=== PATIENT | male | born 1955 | race African-American/Black ===

== ENCOUNTER 2024-07-08 13:43 | Observation (INO) ==
--- NOTE | 2024-07-08 14:15 | EKG ---
Test Reason : chest pain Blood Pressure : */* mmHG Vent. Rate : 57 BPM Atrial Rate : 57 BPM P-R Int : 172 ms QRS Dur : 90 ms QT Int : 444 ms P-R-T Axes : 64 58 65 degrees QTc Int : 432 ms Sinus bradycardia Minimal voltage criteria for LVH, may be normal variant ( Sokolow-Kwan ) Septal infarct , age undetermined Abnormal ECG When compared with ECG of 31-JAN-2024 16:30, Nonspecific T wave abnormality no longer evident in Inferior leads Nonspecific T wave abnormality no longer evident in Lateral leads Confirmed by Juan Carlos Winchester MD ([id number]) on 07/08/2024 7:51:12 PM Referred By: Confirmed By: Juan Carlos Winchester MD
[2024-07-08 14:26] LABS: HEMOGLOBIN 12.8 g/dL (13.5-18.0); MEAN CORPUSCULAR HEMOGLOBIN 25.5 pg (27.0-34.0); WHITE BLOOD COUNT 8.2 X10^3/uL (3.6-10.0)
[2024-07-08 14:29] LABS: BASOPHILS # (AUTO) 0.1 X10^3/uL (0.0-0.1); BASOPHILS % (AUTO) 0.8 % (0.2-1.0); EOSINOPHILS % (AUTO) 0.1 % (0.9-2.9); HEMATOCRIT 38.8 % (42.0-54.0); LYMPHOCYTES # (AUTO) 1.7 X10^3/uL (1.3-2.9); LYMPHOCYTES % (AUTO) 21.4 % (21.0-51.0); MEAN CORPUSCULAR HGB CONC 32.9 g/dL (33.0-35.0); MEAN CORPUSCULAR VOLUME 77.4 fL (80.0-100.0); MEAN PLATELET VOLUME 8.1 fL (7.4-11.0); MONOCYTES # (AUTO) 0.6 x10^3/uL (0.3-0.8); MONOCYTES % (AUTO) 6.9 % (0.0-13.0); NEUTROPHILS # (AUTO) 5.8 x10^3/uL (2.2-4.8); NEUTROPHILS % (AUTO) 70.8 % (42.0-75.0); PLATELET COUNT 183 X10^3/uL (150.0-450.0); RED BLOOD COUNT 5.02 X10^6/uL (4.7-6.0); RED CELL DISTRIBUTION WIDTH 14.1 % (11.6-16.5)
[2024-07-08 14:37] LABS: ALANINE AMINOTRANSFERASE 27 Units/L (12-78); ALKALINE PHOSPHATASE 92 Units/L (46-116); ASPARTATE AMINO TRANSFERASE 25 Units/L (15-37); BLOOD UREA NITROGEN 12 mg/dL (7-18); CALCIUM 9.2 mg/dL (8.5-10.1); CARBON DIOXIDE 27.3 mmol/L (21-32); CHLORIDE 107 mmol/L (98-107); CREATINE KINASE 96 Units/L (39-308); CREATININE 1.08 mg/dL (0.70-1.30); GLUCOSE 96 mg/dL (65-99); POTASSIUM 4.1 mmol/L (3.5-5.1); SODIUM 145 mmol/L (136-145); TOTAL PROTEIN 7.9 g/dL (6.4-8.2); eGFR NON BLACK RACES > 60 (>60)
[2024-07-08 14:50] LABS: INR 1.03 (0.8-1.3)
[2024-07-08] MEDS: ZOFRAN INJ 4 MG VIAL IVP ONE (15:18)
[2024-07-08] MEDS: MORPHINE SULFATE INJ 4 MG IVP ONE (15:21)
--- NOTE | 2024-07-08 16:30 | CT ---
EXAM: CTA CHEST WITH CONTRAST HISTORY: elevated d-dimer, chest pain; COMPARISON: None. TECHNIQUE: Axial images were acquired of the chest with IV contrast for a CT angiogram. Coronal and sagittal ewa ges were provided. All images were reviewed in a variety of windows and levels. 3D 8 mm thick MIPS im ages were provided. RADIATION REDUCTION TECHNIQUE: Automated exposure control, Adjustment of the mA and/or kV according t o patient size, or iterative reconstruction techniques were used. 8 mm thick axial MIPS images were p rovided. FINDINGS: THYROID GLAND: The thyroid gland is unremarkable. HEART AND VESSELS: The heart size is within normal limits. There is no evidence of a pericardial effu romeo. The thoracic aorta is normal in size without evidence of aneurysm or dissection. The main pulmo nary artery size is within normal limits. There are no filling defects seen in the visualized pulmona ry arteries to suggest a pulmonary embolism. LYMPHNODES: There is no evidence of axillary, mediastinal, or hilar lymphadenopathy, calcified hilar nodes indicative of old granulomatous disease. AIRWAY: The trachea and mainstem bronchi are patent. No intraluminal lesions are seen. LUNGS: The lungs are clear bilaterally. There is no evidence of consolidation, pleural effusion, or p neumothorax. ESOPHAGUS: The esophagus is grossly unremarkable. BONES: The visualized bones demonstrate degenerative changes. There are no concerning lytic or blasti c lesions identified. UPPER ABDOMINAL STRUCTURES: The visualized portions of the upper abdominal structures are unremarkabl e. IMPRESSION: Negative CT pulmonary angiogram; no evidence of pulmonary embolic disease. No active cardiopulmonary disease THIS IS AN ELECTRONICALLY VERIFIED FINAL REPORT 07/08/2024 4:26 PM - Electronically signed by Chas Hussein MD
[2024-07-08] MEDS: DILAUDID INJ IM ONE (18:54)
[2024-07-08] MEDS: NORFLEX INJ IVP ONE (19:05)
[2024-07-08] MEDS: DILAUDID INJ IVP ONE (19:05)
[2024-07-08] MEDS: LYRICA CAP 150 mg PO SCH (20:28)
[2024-07-08] MEDS: ELAVIL PO SCH (20:28)
--- NOTE | 2024-07-08 20:35 | DR.CP ---
HPI Time Seen Time Seen by Provider: 07/08/24 15:02 PCP Primary Care Physician: Julian HPI Comment HPI Comment: 69 yo male with compalints of left side chest pain, left abdominal pain radiates to left lower extremity. Pt states he had suden onset of left chest pain around 11am today. Pt describes CP as "dull, like a big piece of meat is stuck there". Pt also states that his left abdomen is hurting "like I have a big piece of meat stuck there". Pt denies n/v/d, contstipation of note, patient seen at [facility], diagnosed with back pain, abdominal pain and thigh pain. workup unremarkable. treated with morphine and discharged home. Complaint Chief Complaint:: Pt states he had suden onset of left chest pain around 11am today. Pt describes CP as "dull, like a big piece of meat is stuck there". Pt also states that his left abdomen is hurting "like I have a big piece of meat stuck there". Pt denies n/v/d, contstipation Self Treatment fo Chief Complaint: Pt has not take any ASA or NTG at home. COVID-19 Coronavirus risk:travel/contact w/high risk person: No Has patient experienced Coronavirus symptoms: No Source History Provided: Patient and Significant Other Mode of Arrival Mode of Arrival: Ambulatory Timing Onset of Chief Complaint: 07/08/24 Location Chest Pain Radiation Location: Neck and Abdomen Associated Signs and Symptoms Associated Signs and Symptoms: None PMH PMH Past Medical History: Yes Past Medical History: COPD, Dyslipidemia, Migraines, GERD, Hypertension and Seizures Past Medical History Comment: chronic pain, hepatitis C, pancreatitis Past Surgical History: No Family History History of Family Medical Conditions: Yes Family Medical History: Hypertension Social History Does patient currently use any type of tobacco product: Yes Have you used tobacco products in the last 12 months: Yes Type of Tobacco Use: Cigarettes Does any household member use tobacco: Yes Alcohol Use: Occasionally Do you use any recreational Drugs:: Yes (marijuana) Lives With: Spouse Lives Where: Home Travel Risk Coronavirus risk:travel/contact w/high risk person: No Has patient experienced Coronavirus symptoms: No Infectious screening In the last 2 months have you had wt loss of >10#?: NO Have you had fever, night sweats or hemotysis?: No Have you traveled outside the country in the last 6 months?: No Isolation: Standard ROS Review of Systems Eyes: No Symptoms Reported ENTM: No Symptoms Reported Respiratoy: No Symptoms Reported Cardiovascular: Chest Pain Genitourinary: No Symptoms Reported Neurological: No Symptoms Reported Musculoskeletal: Left and Leg Integumentary: No Symptoms Reported Hematologic/Lymphatic: No Symptoms Reported Endocrine: No Symptoms Reported Psychiatric: No Symptoms Reported All Other Systems: Reviewed and Negative PE Vitals Vitals: Vital Signs Temperature 98.7 F Pulse Rate 61 Pulse Rate 57 Pulse Rate 58 Pulse Rate 57 Pulse Rate 60 Pulse Rate 59 Pulse Rate 61 Pulse Rate 61 Pulse Rate 59 Pulse Rate 63 Pulse Rate 59 Pulse Rate 58 Pulse Rate 59 Pulse Rate 63 Pulse Rate 63 Pulse Rate 59 Pulse Rate 58 Pulse Rate 64 Pulse Rate 58 Pulse Rate 65 Respiratory Rate 17 Respiratory Rate 35 Respiratory Rate 35 Respiratory Rate 31 Respiratory Rate 35 Respiratory Rate 25 Respiratory Rate 25 Respiratory Rate 22 Respiratory Rate 16 Respiratory Rate 18 Respiratory Rate 21 Respiratory Rate 18 Respiratory Rate 23 Respiratory Rate 13 Respiratory Rate 14 Respiratory Rate 17 Respiratory Rate 22 Respiratory Rate 18 Respiratory Rate 10 Respiratory Rate 15 Respiratory Rate 32 Respiratory Rate 26 Respiratory Rate 23 Blood Pressure 171/82 Blood Pressure 178/82 Blood Pressure 173/81 Blood Pressure 170/83 Blood Pressure 170/83 Blood Pressure 170/83 Blood Pressure 170/83 Blood Pressure 171/74 Blood Pressure 189/82 Blood Pressure 169/77 O2 Sat by Pulse Oximetry 100 O2 Sat by Pulse Oximetry 100 O2 Sat by Pulse Oximetry 100 O2 Sat by Pulse Oximetry 98 O2 Sat by Pulse Oximetry 100 O2 Sat by Pulse Oximetry 99 O2 Sat by Pulse Oximetry 99 O2 Sat by Pulse Oximetry 99 O2 Sat by Pulse Oximetry 98 O2 Sat by Pulse Oximetry 99 O2 Sat by Pulse Oximetry 99 O2 Sat by Pulse Oximetry 100 O2 Sat by Pulse Oximetry 99 O2 Sat by Pulse Oximetry 98 O2 Sat by Pulse Oximetry 100 O2 Sat by Pulse Oximetry 99 O2 Sat by Pulse Oximetry 100 O2 Sat by Pulse Oximetry 98 O2 Sat by Pulse Oximetry 99 O2 Sat by Pulse Oximetry 98 General General Appearance: In Distress Head Head Exam: Normal Inspection, Atraumatic and Normocephalic Eyes Eye exam: Normal Appearance and EOMI ENT ENT Exam: Mucous Membranes Moist Chest Chest Inspection: Normal Inspection Respiratory Respiratory Exam: Normal Lung Sounds Bilat Cardiovascular Cardiovascular Exam: Regular Rate and Normal Rhythm Abdominal Exam Abdominal Exam: Normal Inspection, Normal Bowel Sounds and Soft Extremities Extremities Exam: Normal Inspection MDM Differential Diagnosis Differential Diagnosis: Angina, Aortic Dissection, Chest Wall Pain, Cholelithasis, Costochondritis, Esophageal Reflux/Spasm, Gastritis, Myocardial Infarction, Pericarditis, Pancreatitis, Pneumonia and Pulmonary Embolus COURSE Treatment Treatment: This is a 69-year-old male that presents with left-sided chest pain, abdominal pain and left thigh pain. Differential diagnosis ACS, pulmonary embolism, aortic dissection, pneumonia, musculoskeletal pain, chronic pain syndrome EKG: NO STEMI Serial cardiac enzymes negative Elevated D-dimer. CTA of chest-no pulmonary embolus. No findings of a thoracic aortic dissection. Heart score 3, low risk Initially, patient given morphine 4 mg for pain which helped for a bit then followed up with Dilaudid 0.5 mg along with norflex 60mg iv Patient pain intractable. Given the fact the patient was seen in the ER on yesterday and reports back to the ER and continues to complain of chest pain, called on-call doctor Dr. Ortiz to admit for observational chest pain rule out. He agreed. [facility] Labs Reviewed 07/08/24 14:11 07/08/24 14:11 Laboratory: WBC 8.2 X10^3/uL (3.6-10.0) 07/08/24 14:11 RBC 5.02 X10^6/uL (4.7-6.0) 07/08/24 14:11 Hgb 12.8 g/dL (13.5-18.0) L 07/08/24 14:11 Hct 38.8 % (42.0-54.0) L 07/08/24 14:11 MCV 77.4 fL (80.0-100.0) L 07/08/24 14:11 MCH 25.5 pg (27.0-34.0) L 07/08/24 14:11 MCHC 32.9 g/dL (33.0-35.0) L 07/08/24 14:11 RDW 14.1 % (11.6-16.5) 07/08/24 14:11 Plt Count 183 X10^3/uL (150.0-450.0) 07/08/24 14:11 MPV 8.1 fL (7.4-11.0) 07/08/24 14:11 Neut % (Auto) 70.8 % (42.0-75.0) 07/08/24 14:11 Lymph % (Auto) 21.4 % (21.0-51.0) 07/08/24 14:11 [place] % (Auto) 6.9 % (0.0-13.0) 07/08/24 14:11 Eos % (Auto) 0.1 % (0.9-2.9) L 07/08/24 14:11 Baso % (Auto) 0.8 % (0.2-1.0) 07/08/24 14:11 Neut # (Auto) 5.8 x10^3/uL (2.2-4.8) H 07/08/24 14:11 Lymph # (Auto) 1.7 X10^3/uL (1.3-2.9) 07/08/24 14:11 [place] # (Auto) 0.6 x10^3/uL (0.3-0.8) 07/08/24 14:11 Eos # (Auto) 0.0 x10^3/uL (0.0-0.2) 07/08/24 14:11 Baso # (Auto) 0.1 X10^3/uL (0.0-0.1) 07/08/24 14:11 Absolute Nucleated RBC 0.0 /100WBC 07/08/24 14:11 PT 13.3 SECONDS (11.8-14.3) 07/08/24 14:30 INR Target Range - 07/08/24 14:30 INR 1.03 (0.8-1.3) 07/08/24 14:30 APTT 26.0 SECONDS (22.9-36.5) 07/08/24 14:30 PTT Comment - 07/08/24 14:30 D-Dimer 1.80 ug/ml (0.0-0.57) H 07/08/24 14:30 Sodium 145 mmol/L (136-145) 07/08/24 14:11 Corrected Sodium TNP 07/08/24 14:11 Potassium 4.1 mmol/L (3.5-5.1) 07/08/24 14:11 Chloride 107 mmol/L (98-107) 07/08/24 14:11 Carbon Dioxide 27.3 mmol/L (21-32) 07/08/24 14:11 BUN 12 mg/dL (7-18) 07/08/24 14:11 Creatinine 1.08 mg/dL (0.70-1.30) 07/08/24 14:11 Est GFR (MDRD) Af Amer > 60 (>60) 07/08/24 14:11 Est GFR (MDRD) Non-Af > 60 (>60) 07/08/24 14:11 Glucose 96 mg/dL (65-99) 07/08/24 14:11 Calcium 9.2 mg/dL (8.5-10.1) 07/08/24 14:11 Corrected Calcium TNP 07/08/24 14:11 Total Bilirubin 0.40 mg/dL (0.2-1.0) 07/08/24 14:11 AST 25 Units/L (15-37) 07/08/24 14:11 ALT 27 Units/L (12-78) 07/08/24 14:11 Alkaline Phosphatase 92 Units/L (46-116) 07/08/24 14:11 Creatine Kinase 96 Units/L (39-308) 07/08/24 14:11 Troponin I High Sens 8.1 ng/L (4.0-60.0) 07/08/24 18:21 B-Natriuretic Peptide 74.8 pg/mL (0-79) 07/08/24 14:11 Total Protein 7.9 g/dL (6.4-8.2) 07/08/24 14:11 Albumin 4.0 g/dL (3.4-5.0) 07/08/24 14:11 Globulin 3.9 g/dL (2.5-4.5) 07/08/24 14:11 Albumin/Globulin Ratio 1.0 Ratio (1.1-2.1) L 07/08/24 14:11 Opioid Opioid Risk Tool Age ([place] box if 16-45): No History of Preadolescent Sexual Abuse: No Total: 0 Total Score Risk Category: Low Risk Copyright: Omkar DALLAS predicting aberrant behaviors Discharge Plan Diagnosis Discharge Problem: Chest pain Discharge Plan Patient Disposition: 09 ADMITTED INPATIENT Condition: Stable
[2024-07-08 20:36] VITALS: BMI 17.4
--- NOTE | 2024-07-09 02:54 | RAD ---
PROCEDURE: Chest X-ray 1 View.HISTORY: chest pain; .TECHNIQUE: AP view.COMPARISON: January 30 this year.TECHNICAL QUALITY: Satisfactory.FINDINGS:Normal size heart.Mediastinum and hilar regions show no masses or lymphadenopathy.Normal central vascularity.No pulmonary consolidation, masses, pleural fluid, or pneumothorax.No acute bony abnormality.IMPRESSION:No evidence of active cardiopulmonary disease.THIS IS AN ELECTRONICALLY VERIFIED FINAL [id number] 2:51 AM - Electronically signed by Klever Hull MD
[2024-07-09 04:56] LABS: BASOPHILS % (AUTO) 0.3 % (0.2-1.0); EOSINOPHILS % (AUTO) 0.5 % (0.9-2.9); HEMATOCRIT 37.3 % (42.0-54.0); LYMPHOCYTES % (AUTO) 22.5 % (21.0-51.0); MEAN CORPUSCULAR HEMOGLOBIN 24.7 pg (27.0-34.0); MEAN CORPUSCULAR HGB CONC 32.1 g/dL (33.0-35.0); MEAN CORPUSCULAR VOLUME 76.9 fL (80.0-100.0); MEAN PLATELET VOLUME 8.2 fL (7.4-11.0); MONOCYTES # (AUTO) 0.9 x10^3/uL (0.3-0.8); MONOCYTES % (AUTO) 9.6 % (0.0-13.0); NEUTROPHILS % (AUTO) 67.1 % (42.0-75.0); PLATELET COUNT 176 X10^3/uL (150.0-450.0); RED BLOOD COUNT 4.84 X10^6/uL (4.7-6.0); RED CELL DISTRIBUTION WIDTH 14.3 % (11.6-16.5)
[2024-07-09 05:06] LABS: ALANINE AMINOTRANSFERASE 24 Units/L (12-78); ALBUMIN 3.4 g/dL (3.4-5.0); ALKALINE PHOSPHATASE 82 Units/L (46-116); ASPARTATE AMINO TRANSFERASE 18 Units/L (15-37); BLOOD UREA NITROGEN 12 mg/dL (7-18); CALCIUM 8.8 mg/dL (8.5-10.1); CHLORIDE 105 mmol/L (98-107); CREATININE 0.92 mg/dL (0.70-1.30); GLUCOSE 100 mg/dL (65-99); POTASSIUM 3.6 mmol/L (3.5-5.1); SODIUM 142 mmol/L (136-145); TOTAL PROTEIN 7.2 g/dL (6.4-8.2); eGFR NON BLACK RACES > 60 (>60)
[2024-07-09] MEDS: OMNIPAQUE 350 mg/mL 100 mL BTL 100 ML ONE (05:27)
[2024-07-09] MEDS: CONSULT PHARMACY - POTASSIUM & MAGNESIUM XX SCH (08:07)
[2024-07-09] MEDS: DILANTIN CAP 100 MG EXT REL PO SCH ×2 (08:07→08:13)
[2024-07-09] MEDS: MAG-OX TAB PO SCH (08:13)
[2024-07-09] MEDS: K-DUR TAB 20 MEQ PO SCH (08:13)
[2024-07-09] MEDS: NORVASC TAB 10 MG PO SCH (08:13)
[2024-07-09] MEDS: MORPHINE SULFATE INJ 2 MG INJ IVP PRN (08:18)
[2024-07-09] MEDS: PEPCID TAB 40 MG PO SCH (09:05)
[2024-07-09] MEDS: SOMA TAB 350 MG PO SCH (10:51)
[2024-07-09 12:44] VITALS: BP 142/66; PULSE 66; RESP 18; TEMP 98.8; O2SAT 98
--- NOTE | 2024-07-11 16:44 | DR.SSS ---
SHORT STAY SUMMARY Admission Date Date of Admission: 07/08/24 Discharge Date Discharge Date: 07/09/24 Admission Diagnoses Admission Diagnoses: Chest pain Abdominal pain Hypomagnesemia Discharge Diagnoses Discharge Diagnoses: Costochondritis Hypomagnesemia Anemia Chronic pancreatitis Chief Complaint Chief Complaint: Abdominal pain, chest pain, back pain History of Present Illness History of Present Illness: Mr. Mayes is a 69-year-old male with a past medical history of chronic back pain, chronic pancreatitis, GERD, neuropathy and seizure disorder presented with left-sided chest pain, abdominal pain that radiates to the leg. He has had recurrent ER visits and admissions in the past few weeks for similar symptoms. All the workup has been negative. ER workup at [facility] was negative including normal troponin, chest x-ray and other pertinent labs. D- dimer was elevated, CTA chest was done which was negative for PE. He was noted to have low magnesium. He was admitted for further evaluation. He denied nausea, vomiting, diarrhea or constipation. Past Medical History Past Medical History: COPD, Dyslipidemia, Migraines, GERD, Hypertension and Seizures Past Surgical History Surgical History: Ortho Surgery Allergies Allergies Allergy/AdvReac Type Severity Reaction Status Date / Time green tea Allergy Unknown Verified 07/08/24 20:46 Tea (Jes Sinensis) Allergy Unknown Verified 07/08/24 20:46 Medications Home Medications: green tea Allergy (Unknown, Verified 07/08/24 20:46) Tea (Jes Sinensis) Allergy (Unknown, Verified 07/08/24 20:46) CONTINUE taking the following medications amitriptyline 75 mg tablet 75 mg PO QPM 07/08/24 [History] amlodipine 10 mg tablet 10 mg PO QDAY 07/08/24 [History] [id number] 36,000-114,000-180,000 unit capsule,delay rel (Creon) 2 cap PO QID 07/08/24 [History] oxycodone-acetaminophen 10 mg-325 mg tablet 1 tab PO BID PRN 07/08/24 [History] pregabalin 150 mg capsule 150 mg PO BID 07/08/24 [History] New Prescriptions famotidine 40 mg tablet 40 mg PO DAILY 30 days #30 tabs 07/09/24 [Rx] Family History Family Medical History: Hypertension Social History Does patient currently use any type of tobacco product: Yes Have you used tobacco products in the last 12 months: Yes Type of Tobacco Use: Cigarettes Does any household member use tobacco: Yes Alcohol Use: Occasionally Drug Use: Marijuana Review of Systems Constitutional: No Symptoms Reported Eyes: No Symptoms Reported ENT: No Symptoms Reported Respiratory: No Symptoms Reported Cardiovascular: Chest Pain Gastrointestinal: Abdominal Pain Genitourinary: No Symptoms Reported Musculoskeletal: Back Pain and Leg Pain Skin: No Symptoms Reported Neurological: No Symptoms Reported Physical Exam Vital Signs: Last Vital Signs Temp 97.9 F 07/09/24 08:00 Pulse 86 07/09/24 08:00 Resp 20 07/09/24 08:48 BP 158/79 07/09/24 08:00 Pulse Ox 99 07/09/24 08:00 O2 Del Method Room Air 07/09/24 08:00 Oriented: Normal Throat: Dry Respiratory: Diminished Throughout Cardiovascular: Normal Auscultation: Bowel Sounds: Normal Palpation: Normal Tenderness: Normal Skin: Normal Musculoskeletal: Normal Psychiatric: Anxiety Mood Description: Calm Affect: Normal Speech Pattern: Clear and Appropriate Labs Labs: Laboratory Last Values WBC 9.0 X10^3/uL (3.6-10.0) 07/09/24 04:28 RBC 4.84 X10^6/uL (4.7-6.0) 07/09/24 04:28 Hgb 12.0 g/dL (13.5-18.0) L 07/09/24 04:28 Hct 37.3 % (42.0-54.0) L 07/09/24 04:28 MCV 76.9 fL (80.0-100.0) L 07/09/24 04:28 MCH 24.7 pg (27.0-34.0) L 07/09/24 04:28 MCHC 32.1 g/dL (33.0-35.0) L 07/09/24 04:28 RDW 14.3 % (11.6-16.5) 07/09/24 04:28 Plt Count 176 X10^3/uL (150.0-450.0) 07/09/24 04:28 MPV 8.2 fL (7.4-11.0) 07/09/24 04:28 Neut % (Auto) 67.1 % (42.0-75.0) 07/09/24 04:28 Lymph % (Auto) 22.5 % (21.0-51.0) 07/09/24 04:28 [place] % (Auto) 9.6 % (0.0-13.0) 07/09/24 04:28 Eos % (Auto) 0.5 % (0.9-2.9) L 07/09/24 04:28 Baso % (Auto) 0.3 % (0.2-1.0) 07/09/24 04:28 Neut # (Auto) 6.0 x10^3/uL (2.2-4.8) H 07/09/24 04:28 Lymph # (Auto) 2.0 X10^3/uL (1.3-2.9) 07/09/24 04:28 [place] # (Auto) 0.9 x10^3/uL (0.3-0.8) H 07/09/24 04:28 Eos # (Auto) 0.0 x10^3/uL (0.0-0.2) 07/09/24 04:28 Baso # (Auto) 0.0 X10^3/uL (0.0-0.1) 07/09/24 04:28 Absolute Nucleated RBC 0.1 /100WBC 07/09/24 04:28 PT 13.3 SECONDS (11.8-14.3) 07/08/24 14:30 INR Target Range - 07/08/24 14:30 INR 1.03 (0.8-1.3) 07/08/24 14:30 APTT 26.0 SECONDS (22.9-36.5) 07/08/24 14:30 PTT Comment - 07/08/24 14:30 D-Dimer 1.80 ug/ml (0.0-0.57) H 07/08/24 14:30 Sodium 142 mmol/L (136-145) 07/09/24 04:28 Corrected Sodium TNP 07/09/24 04:28 Potassium 3.6 mmol/L (3.5-5.1) 07/09/24 04:28 Chloride 105 mmol/L (98-107) 07/09/24 04:28 Carbon Dioxide 27.0 mmol/L (21-32) 07/09/24 04:28 BUN 12 mg/dL (7-18) 07/09/24 04:28 Creatinine 0.92 mg/dL (0.70-1.30) 07/09/24 04:28 Est GFR (MDRD) Af Amer > 60 (>60) 07/09/24 04:28 Est GFR (MDRD) Non-Af > 60 (>60) 07/09/24 04:28 Glucose 100 mg/dL (65-99) H 07/09/24 04:28 Calcium 8.8 mg/dL (8.5-10.1) 07/09/24 04:28 Corrected Calcium TNP 07/09/24 04:28 Magnesium 1.6 mg/dL (2.0-2.9) L 07/09/24 04:28 Total Bilirubin 0.50 mg/dL (0.2-1.0) 07/09/24 04:28 AST 18 Units/L (15-37) 07/09/24 04:28 ALT 24 Units/L (12-78) 07/09/24 04:28 Alkaline Phosphatase 82 Units/L (46-116) 07/09/24 04:28 Creatine Kinase 96 Units/L (39-308) 07/08/24 14:11 Troponin I High Sens 11.1 ng/L (4.0-60.0) 07/08/24 20:16 B-Natriuretic Peptide 74.8 pg/mL (0-79) 07/08/24 14:11 Total Protein 7.2 g/dL (6.4-8.2) 07/09/24 04:28 Albumin 3.4 g/dL (3.4-5.0) 07/09/24 04:28 Globulin 3.8 g/dL (2.5-4.5) 07/09/24 04:28 Albumin/Globulin Ratio 0.9 Ratio (1.1-2.1) L 07/09/24 04:28 Hospital Course Hospital Course: Patient was admitted for observation. All his workup including cardiac enzymes, CTA chest were normal. He was treated with pain medication. His labs were monitored daily and electrolytes were replaced as needed. 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 He has not followed up with GI. Patient was told to follow-up with GI as his symptoms might be related to indigestion/gastritis. He has not had a EGD recently. He was stable for discharge. He was discharged on famotidine 40 mg daily. He will follow-up with GI and PCP as scheduled. Discharge Medications Discharge Medications: Home Medication List amitriptyline 75 mg tablet 75 mg PO QPM 07/08/24 [History] amlodipine 10 mg tablet 10 mg PO QDAY 07/08/24 [History] [id number] 36,000-114,000-180,000 unit capsule,delay rel (Creon) 2 cap PO QID 07/08/24 [History] oxycodone-acetaminophen 10 mg-325 mg tablet 1 tab PO BID PRN 07/08/24 [History] pregabalin 150 mg capsule 150 mg PO BID 07/08/24 [History] famotidine 40 mg tablet 40 mg PO DAILY 30 days #30 tabs 07/09/24 [Rx] Prescriptions: famotidine Brittney Jordan Discharge Disposition Discharge Disposition: To home Discharge Plan Discharge Plan Patient Disposition: 01 HOME, SELF-CARE Condition: Stable Health Concerns: Post Hospitalization: new medications and changes needed to prevent readmission or further decline. Pt educated and given instructions on all concerns. Care Plan Goals: Problem: Pain/Alteration in Comfort Goal: Improve/ Resolve Pain; Achieve Pain Tolerance Instructions: Take pain medications as prescribed. Contact your primary care provider if your pain is unrelieved or worsens. Follow up with primary care provider as directed. Plan of Treatment: Continue with present treatment and follow up plan. Pt is to keep follow up appointment as instructed and take medications as ordered. Prescription drug monitoring program results: PDMP reviewed and no concerns identified Prescriptions: New famotidine 40 mg Tablet 40 mg PO DAILY 30 Days Qty: 30 0RF Continued phenytoin sodium extended [Dilantin Kapseal] 100 mg capsule 100 mg PO DAILY Rx Instructions: FreeTextSig: Oral; Note: Dr. Luke carisoprodol 350 mg tablet 350 mg PO TID Patient Comments: NEURO amitriptyline 75 mg tablet 75 mg PO QPM oxycodone-acetaminophen 10-325 mg tablet 1 tab PO BID PRN amlodipine 10 mg tablet 10 mg PO QDAY pregabalin 150 mg capsule 150 mg PO BID Creon 36,000-114,000- 180,000 unit capsule,delayed release(DR/EC) 2 cap PO QID Orders to Discharge Patient Discharge Orders: Discharge (Routine); Ordered 07/09/24 Ordered By: Brittney Jordan Follow ups/Referrals Follow ups/Referrals: DANDRE NAPOLES [STAFF PHYSICIAN] - 1 WEEK (Office to call patient directly with appointment) Brittney Jordan MD [Primary Care Provider] - 07/12/24 11:30 am Instructions Instructions: Steps to Quit Smoking, [id number], Hypomagnesemia, Nonspecific Chest Pain, Adult, [id number] Stand Alone Forms: Post Hospital Follow Up Care
== END 2024-07-09 13:45 | disposition home or self-care (01) ==
LOC: ER 13:43 → MED/SURG 13:43
PROVIDERS: ADMIT Family Medicine; ATTEND Internal Medicine
DX: R94.31 Abnormal electrocardiogram [ECG] [EKG]; R07.89 Other chest pain; E83.42 Hypomagnesemia; K21.9 Gastro-esophageal reflux disease without esophagitis; R79.1 Abnormal coagulation profile; J44.9 Chronic obstructive pulmonary disease, unspecified; R10.84 Generalized abdominal pain; M79.662 Pain in left lower leg; R00.1 Bradycardia, unspecified; M94.0 Chondrocostal junction syndrome [Tietze]; K86.1 Other chronic pancreatitis; I10 Essential (primary) hypertension; Z86.69 Personal history of other diseases of the nervous system and sense organs; E78.5 Hyperlipidemia, unspecified